=== PATIENT | male | born 1950 | race Caucasian/White ===

== ENCOUNTER 2022-05-06 05:36 | Observation (INO) | payer OTHER ==
--- NOTE | 2022-05-01 11:49 | RAD REPORT ---
EXAM DESCRIPTION: Keiry Gustafson (2 Views)05/01/2022 11:37 am CLINICAL HISTORY: Preop for hip surgery COMPARISON: 2018 FINDINGS: The lungs appear clear of acute infiltrate. The heart is normal size IMPRESSION: No acute abnormalities displayed
[2022-05-01 12:02] LABS: Hematocrit 42.8 % (39.6-49.0); Lymphocytes % 18.7 % (15.3-44.8); MCV 92.4 fL (80-100); MPV 7.6 fL (7.6-11.3); RBC Red Blood Cell Count 4.64 M/uL (4.33-5.43)
[2022-05-01 12:09] LABS: Protime INR 2.12
[2022-05-01 12:11] LABS: Specific Gravity 1.012 (1.005-1.030); Urine Bilirubin NEGATIVE (Negative); Urine Blood Negative (Negative); Urine Clarity Clear (Clear); Urine Color Light-Yellow (Yellow); Urine Glucose NEGATIVE (Negative); Urine Protein NEGATIVE (Negative); Urine Urobilinogen Normal (Normal); Urine pH 7.5 (5.0-7.0)
[2022-05-01 12:15] LABS: SARS-CoV-2 Antigen Rapid Res Negative (Negative)
[2022-05-01 12:22] LABS: Albumin 3.7 g/dL (3.4-5.0); Bilirubin Total 0.5 mg/dL (0.2-1.0); Potassium 4.3 mmol/L (3.5-5.1); Protein, Total 7.9 g/dL (6.4-8.2)
[~2022-05-06 05:36] MED LIST: Oxycodone HCl/Acetaminophen 1 TAB TAB PO SCH
[2022-05-06] MEDS ORDERED: ACETAMINOPHEN 500 MG TAB ONE (05:44)
[2022-05-06] MEDS ORDERED: GABAPENTIN 100 MG CAP ONE (05:44)
[2022-05-06] MEDS ORDERED: CEFAZOLIN SODIUM 2 GM/VIAL ONE (05:44)
[2022-05-06] MEDS ORDERED: Oxycodone HCl/Acetaminophen 1 TAB TAB ONE (05:44)
[2022-05-06] MEDS ORDERED: CELECOXIB 100 MG CAPSULE ONE (05:44)
[2022-05-06] MEDS ORDERED: Ringers Lactate 1,000 ML IV ONE (05:45)
[2022-05-06] MEDS ORDERED: propofoL 200 MG/20 ML VIAL IV ONE ×2 (06:37→08:18)
[2022-05-06] MEDS ORDERED: FENTANYL CITR 100 MCG/2 ML ONE (06:38)
[2022-05-06] MEDS ORDERED: EPINEPHRINE/PF 1 MG/ML AMP ONE ×2 (06:39→10:01)
[2022-05-06] MEDS ORDERED: LIDOCAINE 2% MPF 5 ML VIAL ONE (06:39)
[2022-05-06] MEDS ORDERED: LIDOCAINE 1% MPF 5 ML VIAL ONE ×2 (06:39→10:00)
[2022-05-06] MEDS ORDERED: MIDAZOLAM HCL 2 MG/2 ML INJ ONE (06:39)
[2022-05-06 06:48] LABS: Protime INR 1.15
[2022-05-06] MEDS ORDERED: BUPIVACAINE 0.75% (PF) 2 ML SP ONE (06:50)
[2022-05-06] MEDS ORDERED: GABAPENTIN 100 MG CAP PO SCH (07:00)
[2022-05-06] MEDS ORDERED: CELECOXIB 100 MG CAPSULE PO SCH (07:00)
[2022-05-06] MEDS ORDERED: CEFAZOLIN SODIUM 2 GM in NA CHLORIDE 0.9% 100 ML IVPB SCH (07:00)
[2022-05-06] MEDS ORDERED: TRANEXAMIC ACID 1,000 MG in NA CHLORIDE 0.9% 50 ML IV ONE (07:00)
[2022-05-06] MEDS ORDERED: Phenylephrine HCl 10 MG/ML 1 ML VIAL ONE (07:27)
[2022-05-06] MEDS ORDERED: NS 0.9% VIAL 10 ML ONE ×3 (07:27→08:47)
[2022-05-06] MEDS: TRANEXAMIC ACID 1,000 MG/10 ML VIAL IV ONE ×2 (07:29→08:45)
[2022-05-06] MEDS ORDERED: NS 0.9% VIAL 20 ML ONE (07:38)
[2022-05-06] MEDS ORDERED: ONDANSETRON 4 MG/2 ML VIAL IV PRN (08:56)
[2022-05-06] MEDS ORDERED: HYDROCODONE/APAP 7.5/325 MG TAB PO PRN (08:56)
[2022-05-06] MEDS ORDERED: DOCUSATE NA 100 MG CAP PO PRN (08:56)
--- NOTE | 2022-05-06 08:56 | P.BOP ---
Preoperative diagnosis: left hip arthritis Postoperative diagnosis: same Primary procedure: left lexus Estimated blood loss: 100 Anesthesia: General Transferred to: Recovery Room Condition: Good
[2022-05-06 09:56] LABS: Hematocrit 34.6 % (39.6-49.0)
[2022-05-06] MEDS ORDERED: BUPIVACAINE 0.25% PF 10 ML VIAL ONE (10:00)
[2022-05-06] MEDS ORDERED: dexAMETHasone 10 MG/ML VIAL ONE (10:01)
[2022-05-06] MEDS: CEFAZOLIN 1 GM in NA CHLORIDE 0.9% 50 ML IVPB SCH ×2 (12:00→17:53)
[2022-05-06 12:31] VITALS: O2SAT 99
--- NOTE | 2022-05-06 12:43 | RAD REPORT ---
EXAM DESCRIPTION: - Hip in OR Left 1 View - 05/06/2022 8:33 am FINDINGS: Single intraoperative image was obtained showing acetabular component in place. A rasp or trial prosthesis is present in the proximal left femur. Components show no suspicious or unexpected f inding.
[2022-05-06] MEDS ORDERED: INFLUENZA VACCINE (for 6+ mo) 0.5 ML DOSE IMVAC ONE (13:00)
--- NOTE | 2022-05-06 17:24 | OP ---
Date of Procedure: 05/06/2022 Surgeon: David Haley MD Preoperative Diagnosis: Left hip arthritis. Postoperative Diagnosis: Left hip arthritis. Procedure: Left total hip arthroplasty using the Accolade and Trident System from [employer]. Estimated Blood Loss: 100 cc. Complications: There were no complications. Indications For Operation: Mr. Curry is a 71-year-old male, who has severe debilitating pain relate d to his left hip. He also has severe arthritic changes on x-ray. Risks, benefits, and alternatives to total hip arthroplasty have been discussed with him. He states he understands things as presente d and wishes to proceed. Description Of Procedure: The patient was taken to the operating room and received a block and was t hen rolled right side down with an axillary roll with all bony prominences being checked by Anesthesi a. He was then appropriately positioned in the hip positioners. His left lower extremity was then p repped and draped in the usual sterile fashion for the procedure. Following this, a standard postero lateral approach was taken down carefully through the skin and soft tissues. Meticulous hemostasis b eing maintained using Bovie electrocautery. This leads down to the fascia. A small stab wound was m emily in the fascia and extended up near the tip of the greater trochanter. It was then curved gently backward. The gluteus muscles were then spread using finger pressure. The sciatic nerve was then pa lpated and protected throughout the case as the Charnley was being placed. After this, the external rotators and capsule were then taken down carefully, being tagged for later repair as a unit. The hi p was then easily dislocated and a slightly shorter standard neck cut was performed. The head was th en sized using ring gauges. After this, the labrum and soft tissue were removed from the acetabulum and it was then sequentially reamed until has good bleeding bone. The acetabulum was then placed and attention was then turned to the femur. The steam box hand was used to lateralize and the canal finding reamer was then used. It was then broached up to the appropriate size. After this, an x-ray was ta royer to ensure correct size of the femur as well as assess acetabulum. These both appeared to be good . After this, the broach was then removed and a liner was placed in the acetabulum. After this, the final stem was placed and it was then trialed with a +4, the +4 comes to full extension. There was no shuck. It is stable to full flexion, adduction, and internal rotation to at least 40 degrees. Th ere is a possibility it could go slightly shorter; however, given the patient's relatively significan t medical problems and functional status, decision was made to proceed with perhaps a slightly long t o help ensure we will not have problems related to reoperation or dislocation. The final ball was th en tapped into place. It was then reduced. It was found to be stable in the same parameters. The w ound was irrigated and the external rotators are repaired back to the greater trochanter via bone noman thomas. It was again irrigated and the fascia was closed in a watertight fashion using heavy Vicryl otoole tures and again irrigated, and the skin was closed using 2-0 Vicryl sutures followed by govind. The patient was then placed in Aquacel dressing, awakened, and taken to recovery room in good condition. There were no complications. /KE Voice ID: [id number] Report ID: [id number]
[2022-05-07] MEDS: CEFAZOLIN 1 GM in NA CHLORIDE 0.9% 50 ML IVPB SCH (00:02)
[2022-05-07] MEDS ORDERED: ENOXAPARIN 40 MG/0.4 ML SQ SCH (09:00)
--- NOTE | 2022-05-07 11:10 | P.CNS ---
Date of Consult: 05/06/22 Reason for Consult: Medical management Requesting Physician: David Haley Chief Complaint: Left total hip Allergies No Known Allergies Allergy (Verified 05/06/22 06:06) Home Medications: Rivaroxaban [Xarelto] 20 mg PO DAILY #30 tablet 08/03/17 Cyclobenzaprine [Flexeril] 10 mg PO TID PRN 05/01/22 Gabapentin 900 mg PO BEDTIME 05/01/22 Lidocaine [Lidocaine Pain Relief] 1 each TP DAILY 05/01/22 Metoprolol Succinate [Toprol Xl] 12.5 mg PO DAILY 05/01/22 Tamsulosin [Flomax] 0.4 mg PO BEDTIME 05/01/22 - Past Medical/Surgical History Diabetic: No -: childhood scarlets fever -: head injury child -: Tonsillectomy around age 3 -: inguinal hernia repair around age 1 -: Skull fracture repair around age 2 -: surgery right palm tendon around 1970 -: left index finger tendon repair - Family History Father Medical History: Heart disease Sister Medical History: GI disease Mother Medical History: Heart disease, Cancer - Social History Alcohol use: No CD- Drugs: No Caffeine use: Yes Place of Residence: Home Review of Systems 10-point ROS is otherwise unremarkable Physical Examination Temp Pulse Resp BP Pulse Ox 98.6 F 78 16 102/66 98 05/07/22 08:00 05/07/22 08:00 05/07/22 08:00 05/07/22 08:00 05/07/22 08:00 General: Alert, In no apparent distress HEENT: Atraumatic, PERRLA, Mucous membr. moist/pink, EOMI, Sclerae nonicteric Neck: Supple, 2+ carotid pulse no bruit, No LAD, Without JVD or thyroid abnormality Respiratory: Clear to auscultation bilaterally, Normal air movement Cardiovascular: Regular rate/rhythm, Normal S1 S2 Gastrointestinal: Normal bowel sounds, No tenderness Musculoskeletal: No tenderness Integumentary: No rashes Neurological: Normal gait, Normal speech, Normal tone, Normal affect Lymphatics: No axilla or inguinal lymphadenopathy Laboratory Data (last 24 hrs) 05/07/22 03:10: Hgb 13.1 L, Hct 39.0 L 05/06/22 16:30: Hgb 13.3 L D, Hct 39.0 L - Problems (1) S/P total left hip arthroplasty Current Visit: Yes Status: Acute (2) Atrial fibrillation Current Visit: Yes Status: Acute
[2022-05-07 16:09] VITALS: BP 118/66; TEMP 98.2
== END 2022-05-07 18:55 ==
LOC: OR 05:36 → INTOOBSV 08:57 → 4TH 08:57
PROVIDERS: ADMIT Orthopaedic Surgery; ATTEND Orthopaedic Surgery
PROC: 0SRB06A Replacement of Left Hip Joint with Oxidized Zirconium on Polyethylene Synthetic Substitute, Uncemented, Open Approach (ICD-10-PCS; principal; 2022-05-06 07:00)
DX: M16.7 Other unilateral secondary osteoarthritis of hip (principal); Z20.822 Contact with and (suspected) exposure to COVID-19; I48.91 Unspecified atrial fibrillation
CPT/HCPCS: 85025; 36415 ×2; 86900; 86850; 88313; 85610 ×2; 86901; 88305; 88311; 85730 ×2; 85018 ×3; 85014 ×3; 81003; 80053; 71046; 73501; 97110; 97116; 97161; 97530; 87811; 27130; 20985; G0379; J2704 ×2; J0171 ×2; J2001 ×3; J2370; J1650; J2250; J3010; J1100; A4216 ×4; J7120; J0690 ×2; G0378 ×2